=== PATIENT | female | born 1925 | race Caucasian/White ===

== ENCOUNTER 2017-01-07 11:51 | Outpatient (RCR) | payer MEDICARE, OTHER | END 2017-02-01 | disposition home or self-care (01) | LOC: WCC 11:51 | DX: L89.321 Pressure ulcer of left buttock, stage 1 (principal); Z96.653 Presence of artificial knee joint, bilateral; I10 Essential (primary) hypertension; Z88.0 Allergy status to penicillin; Z88.8 Allergy status to other drugs, medicaments and biological substances | CPT/HCPCS: G0463 ==